=== PATIENT | male | born 1960 ===

== ENCOUNTER 2023-12-26 07:30 | Day surgery (SDC) | payer OTHER ==
[~2023-12-26 07:30] MED LIST: LACTATED RINGERS 1,000 ML BAG ONE
[2023-12-26] MEDS ORDERED: PROPOFOL 10 MG/ML 20 ML VIAL IV ONE (07:41)
--- NOTE | 2024-01-05 15:52 | PCN ---
PROCEDURE NOTE REQUESTING PHYSICIAN: Dr. Thomas. LOCATION: [facility]. INDICATIONS: Patient is a 63-year-old pleasant white male scheduled to have colonoscopy as a part of screening for colorectal neoplasia. PREOPERATIVE DIAGNOSIS: Screening for colon cancer. IV sedation per Anesthesia. PROCEDURE PERFORMED: Colonoscopy. DESCRIPTION OF PROCEDURE: After informed consent was obtained from the patient, he was brought into the endoscopy unit. IV conscious sedation was administered by Anesthesia and continuous monitoring. Initial digital rectal examination was normal. The Olympus CF-190 video colonoscope was advanced into the rectum, gradually advanced into the cecum. Careful examination was performed as the scope was gradually being withdrawn. The ileocecal valve and the appendiceal orifice were visualized and appeared normal. The prep was excellent. Mucosa of the cecum, ascending colon, transverse colon, descending colon, sigmoid colon, and rectum appeared normal. There were scattered sigmoid diverticulosis seen. In the rectum, retroflexion was performed. No lesions were noted. The patient tolerated the procedure well. IMPRESSION: 1. Scattered sigmoid diverticulosis. 2. No evidence of colorectal neoplasia. RECOMMENDATIONS: Findings of this examination were discussed with the patient as well as his family. He was advised to have a repeat screening colonoscopy in 10 years. MMODL / IJN: [id number] /
== END 2023-12-26 10:31 ==
LOC: ORWHC2ENDO 07:30
PROVIDERS: ATTEND Internal Medicine Gastroenterology
DX: Z12.11 Encounter for screening for malignant neoplasm of colon
CPT/HCPCS: 45378